=== PATIENT | male | born 1945 | race Caucasian/White ===

== ENCOUNTER 2018-03-18 06:17 | Day surgery (SDC) | payer OTHER, BC ==
[2018-03-12 18:24] VITALS: BMI 28.5
[2018-03-18] MEDS ORDERED: THROMBIN (BOVINE) 5,000 UNIT VIAL TP ONE ×2 (07:09→09:44)
[2018-03-18] MEDS ORDERED: LIDOCAINE 1%/EPI 1:100000 (20 ML MULTI DOSE VIAL) ONE (07:09)
[2018-03-18] MEDS ORDERED: oxyCODONE HCL 10 MG SUSTAINED ACTING TABLET PO ONE (07:11)
[2018-03-18] MEDS ORDERED: methylPREDNISolone ACET (DEPO) 40 MG/1 ML VIAL ONE (07:13)
--- NOTE | 2018-03-18 07:22 | HP ---
History & Physical Update - History History: No Change - Physical Physical: No Change - Assessment Assessment: No Change - Plan Plan: No Change (H&P in chart from Dr. Henosn)
[2018-03-18] MEDS ORDERED: DEXAMETHASONE SOD PHOSPHATE/PF 10 MG/ML SDV ONE (07:45)
[2018-03-18] MEDS ORDERED: ROPIVACAINE HCL 0.5% 30ML VIAL ONE (07:46)
[2018-03-18] MEDS ORDERED: MIDAZOLAM HCL 2 MG/2 ML SINGLE DOSE VIAL ONE ×2 (07:46→08:00)
[2018-03-18] MEDS ORDERED: EPINEPHrine 1:1,000 1 MG/1 ML - 30ML VIAL (INJECTION) ONE (07:52)
[2018-03-18] MEDS ORDERED: ePHEDrine SULFATE 50 MG/1 ML AMPULE ONE (07:59)
[2018-03-18] MEDS ORDERED: ROCURONIUM BROMIDE 50 MG/5 ML VIAL ONE (08:00)
[2018-03-18] MEDS ORDERED: SUCCINYLCHOLINE CHLORIDE 200 MG/10 ML VIAL ONE (08:00)
[2018-03-18] MEDS ORDERED: PROPOFOL 20 ML ONE ×2 (08:00)
[2018-03-18] MEDS ORDERED: DEXAMETHASONE SOD PHOSPHATE 4 MG/1 ML VIAL ONE (08:01)
[2018-03-18] MEDS ORDERED: ONDANSETRON 4 MG/2 ML VIAL ONE (08:01)
[2018-03-18] MEDS ORDERED: SODIUM CHLORIDE 0.9% P/F 10 ML VIAL IJ ONE ×2 (08:01→08:08)
[2018-03-18] MEDS ORDERED: PHENYLEPHRINE HCL 10 MG/1 ML SINGLE DOSE VIAL ONE (08:04)
[2018-03-18] MEDS ORDERED: LIDOCAINE HCL/PF 2% SDV 5ML VIAL ONE (08:08)
[2018-03-18] MEDS ORDERED: BUPIVACAINE HCL/PF 0.5% (5MG/ML) 10 ML VIAL ONE (08:16)
[2018-03-18] MEDS ORDERED: LIDOCAINE 1%/EPI 1:100000 (50 ML MULTI DOSE VIAL) INF ONE (09:41)
[2018-03-18] MEDS ORDERED: methylPREDNISolone ACET (DEPO) 40 MG/1 ML VIAL IM ONE (09:42)
[2018-03-18] MEDS ORDERED: ONDANSETRON 4 MG/2 ML VIAL IVPUSH PRN (09:51)
[2018-03-18] MEDS ORDERED: oxyCODONE HCL 5 MG TABLET PO PRN ×2 (09:51)
[2018-03-18] MEDS ORDERED: LACTATED RINGERS SOLUTION 1,000 ML IV SCH (10:00)
--- NOTE | 2018-03-18 10:42 | OP ---
Operative Note - Note: Operative Date: 03/18/18 Pre-Operative Diagnosis: spinal stenosis, spinal cyst Operation: laminectomy of L3-L4, with cyst excision Surgeon: Alejandro Henson Laborer Heading: Eleni Espinoza Anesthesiologist/PONY RIDE OPERATOR: Brian Rashid Anesthesia: Spinal Specimens Removed: cyst Estimated Blood Loss (mls): 20 Fluid Volume Replaced (mls): 200 Operative Report Dictated: Yes
--- NOTE | 2018-03-18 10:43 | SURG ---
Surgery Start Up Specialist Note Start Up Specialist: Eleni Espinoza PA-C Date of Service: 03/18/18 Diagnosis: spinal stenosis, spinal cyst Procedure: laminectomy of L3-L4 and excision of cyst I was present for the entirety of the operative procedure. For further detail, please refer to operative report.
[2018-03-18 12:31] VITALS: BP 128/63; PULSE 70; TEMP 98.1
--- NOTE | 2018-03-18 13:01 | OP ---
DATE OF OPERATION: 03/18/2018 PREOPERATIVE DIAGNOSES: 1. Spinal stenosis L3-L4. 2. Synovial cyst. POSTOPERATIVE DIAGNOSES: 1. Spinal stenosis L3-L4. 2. Synovial cyst. PROCEDURE PERFORMED: 1. Laminectomy L3-L4. 2. Removal of extradural cyst. SURGEON: Alejandro Henson MD SENIOR CREDIT ANALYST: MARCEL Mcginnis ESTIMATED BLOOD LOSS: 50 mL. IV FLUIDS: Per Anesthesia. ANESTHESIA: Spinal. COMPLICATIONS: None. DISPOSITION: The patient was brought to the PACU in stable condition. INDICATIONS FOR SURGERY: The patient is a 72-year-old gentleman who has been suffering from pain from his back down his legs. X-rays and MRI were completed, which noted that he had synovial cyst at L3-L4. He had gone through an exhaustive course of treatment for this, which included medications, physical therapy as well as injections. Unfortunately, his pain continued to persist despite all this. At this point, risks, benefits, and alternatives were discussed, and the patient consented to surgery. DESCRIPTION OF PROCEDURE: The patient was brought to the operating room by the Anesthesia staff. After appropriate patient identification was performed, spinal anesthesia was given. The patient was able to position himself prone onto the Alberto frame. A TLIP block was also given. Two needles were placed into his back to dave the L3-L4 segment. X-ray was taken to confirm this was correct. The needle was removed, and 10 mL of lidocaine with epinephrine was injected into his back. At this time, his back was prepped and draped in a sterile manner. A time-out was completed. An incision was made from the top of L3 down to the bottom of L4. Dissection was carried down to the fascia. Fascia was then split open at this time, and appropriate retractor was then placed in. A spinal needle was placed onto the L3 lamina. X-ray was taken to confirm this was correct. The needle was removed, and the microscope was brought in. The interspinous ligament at L3-L4 was removed. Portions of the L3-L4 spinous process was removed. The L3-L4 laminas were removed. A complete decompression was performed such that by the end of the procedure the L4 nerve root appeared to be well decompressed. All bleeding was well controlled at this time. Steri-Strips was placed over the nerve root. FloSeal was placed over that. The fascia was closed with a No. 1 Vicryl suture. Subcutaneous tissue was closed with 2-0 Vicryl suture. The skin was closed with 3-0 Monocryl suture. Dermabond was applied. Steri-Strips were applied. A sterile dressing was applied. The patient was placed supine on the OR bed and brought to the PACU in stable condition. Jaspreet ROBERTS/[id number]
--- NOTE | 2018-03-20 14:58 | PATH ---
Surgical Pathology Report Patient Name: YOHANA CHEN [facility]. Rec. #: [id number] /Age/Gender: 1945 (Age: 72) / M Account: [id number] Location: [facility] Taken: 03/18/2018 Received: 03/18/2018 Reported: 03/20/2018 Physicians: Alejandro Henson M.D. Specimen(s) Received LUMBAR CYST L3-L4 Clinical History Spinal stenosis Final Diagnosis LUMBAR CYST L3-L4, LAMINECTOMY: SYNOVIAL CYST. Electronically Signed Lala Verduzco M.D. Gross Description Received in formalin labeled "lumbar cyst L3-L4," is a 1.8 x 0.8 x 0.3 cm nelson portion of soft tissue, possibly consistent with a cyst. The specimen is submitted in toto in one cassette. /03/19/2018 [facility]03/19/2018
== END 2018-03-18 12:31 | disposition home or self-care (01) ==
LOC: FASU 06:17
PROVIDERS: ATTEND Orthopaedic Surgery Orthopaedic Surgery of the Spine
PROC: 01NB0ZZ Release Lumbar Nerve, Open Approach (ICD-10-PCS; principal; 2018-03-18 09:08)
DX: M48.061 Spinal stenosis, lumbar region without neurogenic claudication (principal); M71.38 Other bursal cyst, other site
CPT/HCPCS: 82962; 88304-TC